=== PATIENT | male | born 1950 | race Caucasian/White ===

== ENCOUNTER 2017-01-03 14:20 | Emergency (ER) | payer OTHER, MEDICARE ==
[~2017-01-03] VITALS: Ht 177.8 cm; Wt 96.2 kg
[~2017-01-03 14:20] MED LIST: ATIVAN1 MG PO; BENTYL20 M1 PO; CLONAZEPAM0.5 M2 PO; DIVALPROEX SOD250 M3 PO; DIVALPROEX SOD500 M3 PO; ESCITALOPRAM20 MG PO; GLUCOPHAGE500 MG PO; GOOD SENSE IBU200 MG PO; HYDROXYZINE HCL25 MG PO; IBUPROFEN400 M1 PO; METFORMIN HCL500 M3 PO; MOTRIN 400MG (400 MG PO; OXYCODONE-ACET1 EACH PO; PERCOCET 325 MG1 TA2 PO; PERCOCET 5-3251 EACH PO; PROMETHAZINE HC25 M3 PO; RISPERIDONE1 M1 PO; SERTRALINE HCL25 MG PO; TAMSULOSIN HCL0.4 M1 PO; TRADJENTA5 M1 PO; VOLTAREN100 GM TP; ZOFRAN4 M1 SL; ZOFRAN4 M2 SL; ZOLOFT 100 MG100 MG PO; ZOLOFT100 M1 PO; ZOLOFT25 MG PO
[2017-01-03] MEDS ORDERED: DICYCLOMINE HCL20 M1 PO (14:38)
--- NOTE | 2017-01-03 14:44 | ED UPPER/LOWER EXTREMITY COMPL ---
History of Present Illness General Chief Complaint: Hand or Wrist Injury Stated Complaint: SENT BY URGENT CARE, [facility] RT WRIST Source: patient Exam Limitations: no limitations Vital Signs & Intake/Output Vital Signs & Intake/Output Vital Signs Date Time Temp Pulse Resp B/P B/P Pulse O2 O2 Flow FiO2 Mean Ox Delivery Rate 01/03 1740 96.8 74 20 142/88 95 Room Air 01/03 1424 97.0 70 20 129/88 96 Room Air Allergies Coded Allergies: aspirin (Intermediate, ANAPHYLAXIS 01/17/16) codeine (Intermediate, UPSET GI 01/17/16) paroxetine (From Paxil) (Intermediate, UPSET GI 01/17/16) morphine (PASSES OUT 01/17/16) shellfish derived (N/V, DIARRHEA, ABD PAIN 01/17/16) Reconcile Medications Clonazepam 0.5 MG TABLET 1 TAB PO TID ANXIETY (Reported) Dicyclomine HCl 20 MG TABLET 1 TAB PO TID PRN ABDOMINAL PAIN (Reported) Divalproex Sodium (Divalproex Sodium ER) 250 MG TAB.ER.24H 1 TAB PO BID MOOD STABILITY (Reported) Divalproex Sodium (Divalproex Sodium ER) 500 MG TAB.ER.24H 1 TAB PO BID MOOD STABILITY (Reported) Linagliptin (Tradjenta) 5 MG TABLET 1 TAB PO DAILY DIABETES (Reported) Metformin HCl 500 MG TABLET 1 TAB PO 0800,1700 DIABETES (Reported) Oxycodone HCl/Acetaminophen (Percocet 5-325 MG Tablet) 5 MG-325 MG TABLET 1 TAB PO Q4-6 PRN PAIN Risperidone 1 MG TABLET 1 TAB PO QPM MENTAL HEALTH (Reported) Sertraline HCl 25 MG TABLET 1 TAB PO DAILY MENTAL HEALTH (Reported) Tamsulosin HCl 0.4 MG CAP.ER.24H 1 CAP PO DAILY PROSTATE (Reported) Triage Note: PT TO ED FOR RIGHT WRIST PAIN. STATES HE WENT TO THE WALK-IN FOR RIGHT WRIST PAIN S/P FALLING IN HIS GARDEN TODAY. WALK-IN DID AN X-RAY WHICH SHOWED A FRACTURE. PT SENT TO ED FOR SPLINTING. DECLINING MEDS IN TRIAGE. Triage Nurses Notes Reviewed? yes Onset: Abrupt Duration: constant Timing: single episode today Severity: severe Severity Numbers: 10 Method of Injury: fall HPI: Patient is a 66-year-old male who presents emergency and that today while gardening he tripped on a sidewalk where he fell forward bracing his fall with his right outstretched hand resulting in acute onset of right shoulder pain and right wrist pain. Patient denies any preceding episode of lightheaded sensation or dizziness and had mechanical fall. Patient denies any head strike neck pain or back pain. Patient did present to local urgent care and had x-ray findings concerning of fracture. No shoulder x-ray was performed. No medications administered prior to arrival. Skin is intact no bleeding has occurred. Patient is right arm dominant (JADON DUMONT) Past History Travel History Traveled to [place] past 21 day No Medical History Any Pertinent Medical History? 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 No (JADON DUMONT) Review of Systems Review of Systems Constitutional: Reports: no symptoms. EENTM: Reports: no symptoms. Respiratory: Reports: no symptoms. Cardiovascular: Reports: no symptoms. Gastrointestinal/Abdominal: Reports: no symptoms. Genitourinary: Reports: no symptoms. Musculoskeletal: Reports: see HPI, joint pain. Skin: Reports: no symptoms. Neurological/Psychological: Reports: no symptoms. Hematologic/Endocrine: Reports: no symptoms. Immunological: Reports: no symptoms. All Other Systems: Reviewed and Negative (JADON DUMONT) Physical Exam Physical Exam General Appearance: mild distress Peripheral Pulses: 2+ radial (R), 2+ radial (L) Neurologic/Tendon: normal sensation, normal motor functions, normal tendon functions, responds to pain, no evidence tendon injury, no pulse deficit Skin: intact, normal color, warm/dry Comments: HEENT: Normal EENT exam Neck: Supple, no lymphadenopathy, normal range of motion without pain or tenderness No central spinous tenderness Back: Nontender, no CVA tenderness. No central spinous tenderness Cardiovascular: Regular rate and rhythms no murmurs rubs or gallops, normal JVP Respiratory: Chest nontender. No respiratory distress.breath sounds clear to auscultation bilaterally Abdomen: Soft, nontender nondistended, no appreciable organomegaly. Normal bowel sounds. No ascites Extremity: No edema, no calf tenderness to palpation, normal and equal pulses. Right shoulder normal inspection clavicular point tenderness noted generalized glenohumeral point tenderness noted, decreased active range of motion noted Right elbow nontender full active range of motion Right wrist noted gross deformity and severe point tenderness and swelling. Radial pulse +2 Right hand nontender normal inspection Right upper extremity dermatomes intact Neuro: Alert oriented x3, motor sensory normal, Skin: No appreciable rash on exposed skin, skin is warm and dry. Psych: Mood and affect is normal, memory and judgment is normal. (JADON DUMONT) Progress Differential Diagnosis: arterial insufficiency, compartment syndrome, contusion, dislocation, DVT, fracture, gout, septic arthritis, sprain, tendon injury Plan of Care: Orders Procedure Date/time Status Heart Healthy Diet 01/04 B Active Patient does have concerns of right distal comminuted displaced radial fracture and ulnar fracture and which I discussed x-ray findings with DR. MYERS is who advised patient to receive hematoma block and RIGHT WRIST reduction and place patient in sugar tong splint AND shoulder immobilizer and follow up in office this week. Using sterile technique of Betadine I sterilized the right dorsal wrist region Using his 30-gauge needle 5 mL of 1% lidocaine was used for local interdermal anesthesia Then using a 22-gauge needle 1% lidocaine the hematoma site was ascertained with that aspiration then I inserted 10 mL of lidocaine to the hematoma site successfully making a hematoma block of the right wrist. Using traction I reduced the wrist patient tolerated well I then placed a sugar tong splint using orthopedic glass to the right forearm with web roll and Jordy wrap Pre-and post-neurovascular was intact shoulder immobilizer was placed. Post neurovascular was intact. Patient was strongly advised to follow up with orthopedic doctor reduction films were ordered Upon discharge patient looks well no apparent distress and will comply with discharge instructions and had no questions (JADON DUMONT) Diagnostic Imaging: Viewed by Me: Radiology Read. Radiology Impression: acute abnormality Comments: PATIENT: STEPHIE HOYOS PRESENT AGE: 66 PATIENT ACCOUNT NO: [id number] : 52 LOCATION: [facility] ORDERING PHYSICIAN: JADON ESPITIA SERVICE DATE: 01/03/17 EXAM TYPE: RAD - XRY-SHOULDER COMPLETE-RIGHT; XRY-WRIST COMPLETE-RIGHT EXAMINATION: XR SHOULDER, RIGHT XR WRIST, RIGHT CLINICAL INFORMATION: Right wrist and shoulder pain following a fall. COMPARISON: Right shoulder radiographs dated 05/04/2012. TECHNIQUE: 3 views of the right shoulder as well as 4 views of the right wrist were obtained. FINDINGS: RIGHT SHOULDER: No acute fracture or dislocation. Deformity of the distal clavicle, consistent with the history of a prior comminuted distal clavicular fracture. No significant glenohumeral joint space narrowing or marginal osteophytes. No osseous erosion. No abnormal soft tissue calcification. RIGHT WRIST: There is a comminuted and displaced fracture of the distal radial diametaphysis with multiple extensions to the radiocarpal joint. There is overall mild apex dorsal angulation of the dominant fracture line. A displaced fracture of the ulnar styloid is also noted. There is mild surrounding soft tissue swelling. IMPRESSION: Right shoulder: No acute fracture or dislocation. Deformity related to remote clavicular fracture. Right wrist: Comminuted and displaced fracture of the distal radius with multiple extensions to the radiocarpal articular surface. Displaced ulnar styloid fracture. PATIENT: STEPHIE HOYOS PRESENT AGE: 66 PATIENT ACCOUNT NO: [id number] : 52 LOCATION: [facility] ORDERING PHYSICIAN: JADON ESPITIA SERVICE DATE: 01/03/17160 EXAM TYPE: RAD - XRY-WRIST COMPLETE-RIGHT EXAMINATION: XR WRIST, RIGHT CLINICAL INFORMATION: Evaluate fracture status post reduction splint placement. COMPARISON: Right wrist radiographs done earlier the same day. TECHNIQUE: AP and lateral views of the right wrist through an overlying cast. FINDINGS: A comminuted distal radial fracture is redemonstrated with mild decrease angulation and improvement of anatomic alignment. A displaced ulnar styloid fracture is redemonstrated. IMPRESSION: Comminuted distal right radius fracture with mild improved anatomic alignment. Unchanged ulnar styloid fracture. Interval placement of an overlying cast. DICTATED BY: EDMAR JERRY MD DATE/TIME DICTATED:01/03/171635 MEDICAL LAB ASSISTANT:JASS (JADON DUMONT) Departure Departure Disposition: HOME OR SELF CARE Condition: Stable Clinical Impression Primary Impression: Displaced comminuted fracture of shaft of radius Secondary Impressions: Fracture of right ulnar styloid Referrals: LOUIS QIU,JUNIOR BULLARD MD,JOYCE Cabezas (PCP/Family) Additional Instructions: As discussed begin the prescription of Percocet for pain. On Wednesday please follow up with orthopedic DR. MYERS for further evaluation treatment. Per prescription is waiting at [facility] pharmacy. Continue to leave the splint and Jordy wrap and shoulder immobilizer on at all times and to you follow up with the orthopedic doctor. If symptoms worsen return to emergency room Departure Forms: Customer Survey General Discharge Information Prescriptions: Current Visit Scripts Oxycodone HCl/Acetaminophen (Percocet 5-325 MG Tablet) 1 TAB PO Q4-6 PRN PAIN #20 TAB (JADON DUMONT) PA/BRUSH TRIMMING MACHINE SETTER Co-Sign Statement Statement: ED Attending supervision documentation- [X] I saw and evaluated the patient. I have also reviewed all the pertinent lab results and diagnostic results. I agree with the findings and the plan of care as documented in the PA's/BRUSH TRIMMING MACHINE SETTER's documentation. [X] I have reviewed the ED Record and agree with the PA's/BRUSH TRIMMING MACHINE SETTER's documentation. [] Additions or exceptions (if any) to the PAs/BRUSH TRIMMING MACHINE SETTER's note and plan are summarized below: [] (CHELITA QIU,YOVANNY Burns)
--- NOTE | 2017-01-03 15:17 | RADIOLOGY REPORT ---
EXAMINATION: XR SHOULDER, RIGHT XR WRIST, RIGHT CLINICAL INFORMATION: Right wrist and shoulder pain following a fall. COMPARISON: Right shoulder radiographs dated 05/04/2012. TECHNIQUE: 3 views of the right shoulder as well as 4 views of the right wrist were obtained. FINDINGS: RIGHT SHOULDER: No acute fracture or dislocation. Deformity of the distal clavicle, consistent with the history of a prior comminuted distal clavicular fracture. No significant glenohumeral joint space narrowing or marginal osteophytes. No osseous erosion. No abnormal soft tissue calcification. RIGHT WRIST: There is a comminuted and displaced fracture of the distal radial diametaphysis with multiple extensions to the radiocarpal joint. There is overall mild apex dorsal angulation of the dominant fracture line. A displaced fracture of the ulnar styloid is also noted. There is mild surrounding soft tissue swelling. IMPRESSION: Right shoulder: No acute fracture or dislocation. Deformity related to remote clavicular fracture. Right wrist: Comminuted and displaced fracture of the distal radius with multiple extensions to the radiocarpal articular surface. Displaced ulnar styloid fracture.
[2017-01-03] MEDS ORDERED: PERCOCET 5-3251 EACH PO (16:05)
--- NOTE | 2017-01-03 16:43 | RADIOLOGY REPORT ---
EXAMINATION: XR WRIST, RIGHT CLINICAL INFORMATION: Evaluate fracture status post reduction splint placement. COMPARISON: Right wrist radiographs done earlier the same day. TECHNIQUE: AP and lateral views of the right wrist through an overlying cast. FINDINGS: A comminuted distal radial fracture is redemonstrated with mild decrease angulation and improvement of anatomic alignment. A displaced ulnar styloid fracture is redemonstrated. IMPRESSION: Comminuted distal right radius fracture with mild improved anatomic alignment. Unchanged ulnar styloid fracture. Interval placement of an overlying cast.
[2017-01-03 17:40] VITALS: BP 142/88
[2017-01-07] MEDS ORDERED: IMITREX50 M1 (09:09)
== END 2017-01-03 17:43 ==
LOC: ERH 14:20
DX: S52.351A Displaced comminuted fracture of shaft of radius, right arm, initial encounter for closed fracture (principal); S52.611A Displaced fracture of right ulna styloid process, initial encounter for closed fracture; W18.09XA Striking against other object with subsequent fall, initial encounter; Y93.H2 Activity, gardening and landscaping; Y92.9 Unspecified place or not applicable
CPT/HCPCS: 73030-RT; 73110-RT

== ENCOUNTER → 2017-01-08 | Day surgery (SDC) | payer OTHER, MEDICARE ==
[~2017-01-08] VITALS: Ht 177.8 cm; Wt 50.8 kg
[~2017-01-08] MED LIST changes: +DICYCLOMINE HCL20 M1 PO; +IMITREX50 M1
--- NOTE | 2017-01-08 17:43 | Operative Report ---
Operative/Inv Procedure Report Surgery Date: 01/08/17 Name of Procedure: Open reduction internal fixation of right distal radius fracture which was intra -articular and severely comminuted Pre-Operative Diagnosis: Severely comminuted and displaced distal radius fracture Post-Operative Diagnosis: Same Estimated Blood Loss: less than 50ml Surgeon/Senior Engineering Specialist: LOUIS QIU,Emeterio PACHECO Anesthesia: laryngeal mask airway Implants: 7-hole hand innovation right DVR plate Drains: None Specimens: None Tourniquet: 70 minutes Complications: None Condition: Stable Operative Indication: Patient is a 66-year-old man who injured his right dominant wrist after a fall. He was found to have severely displaced and comminuted intra-articular distal radius fracture. Due to these findings it was recommended that he consider surgical fixation. Risks, benefits and expectations of surgical and further nonsurgical options were discussed including but not limited to persistent pain, nonunion, malunion, injury to blood vessel or nerve, infection and anesthesia risks and need for subsequent surgery. He wished to proceed with surgical management Operative/Procedure Note Note: Patient was brought to the operating room and transferred to the operating table. Once under appropriate anesthesia the right upper extremity was prepped and draped in standard fashion. Preoperative IV antibiotic's were given prophylactically. There was a need for expert assistant professor of religion surgeon during this case due to the severity the comminution and the instability of the fracture. The expert assistant professor of religion surgeon supplied positioning, retraction of soft tissues to protect vital structures including radial artery and median nerve during this procedure. A standard volar incision was made over the distal radius after the right upper extremity was elevated exsanguinated and tourniquet was inflated to 250 mm of pressure. Incision was taken down sharply to the flexor carpi radialis sheath. I then went radial to this and retracted the tendon ulnarly to protect the median nerve. There was significant amount of stripping from the actual injury itself A quadratus was reflected ulnarly as well exposing the fracture. There was multiple large fragments constituting the displaced fracture. There was also a intra-articular split that was visible after using the periosteal elevator to expose the distal portion of the fracture site. Copious irrigation followed. I placed retractors including blunt retractors to protect any injury to vessel or nerve. I then chose a 7-hole plate. A longer plate was needed to be applied due to the severe comminution of the distal shaft of the radius. I used a right DVR hand innovation plate. The 7-hole plate was applied to the volar aspect of the distal radius after reducing the multiple fragments. A large portion of this fracture was and using the plate and therefore proximal fixation included 3 bicortical screws with good fixation and distally including the 2 rows. The proximal row with the partially threaded screws were applied to the plate and the pegs were applied distal and the distal row. This was done in standard fashion with drilling measuring and applying the appropriate length screws. This was done after applying the plate and reducing the fracture placing the 3 guidewires to maintain position of the plate followed by fluoroscopic image control I was satisfied with position of the plate and reduction of the fracture and the position of the hardware. Copious irrigation followed. Then closed the subcutaneous case tissue with 3-0 Vicryl suture followed by skin closure with a running Prolene suture.
== END ==
LOC: STS 01:45
DX: S52.571A Other intraarticular fracture of lower end of right radius, initial encounter for closed fracture (principal); W19.XXXA Unspecified fall, initial encounter
CPT/HCPCS: 93005; 93010; C1713; J0131; J0690; J2250

== ENCOUNTER 2018-02-10 16:36 | Observation (INO) | payer OTHER, MEDICARE ==
[~2018-02-10] VITALS: Ht 175.3 cm; Wt 92.1 kg
[~2018-02-10 16:36] MED LIST changes: +ADVIL200 M1 PO; +ADVIL200 M2 PO; +CARBAMAZEPINE100 M2 PO; -IMITREX50 M1; +IMITREX50 M1 PO; +LAMICTAL25 M1 PO; +VENLAFAXINE HCL75 M1 PO; +VOLTAREN100 GM TOP
[2018-02-10] MEDS ORDERED: VIBERZI75 MG PO (17:00)
[2018-02-10] MEDS ORDERED: BUSPIRONE HCL5 M1 PO (17:00)
--- NOTE | 2018-02-10 17:02 | ED CARDIAC/CP/PALPITATIONS ---
History of Present Illness General Chief Complaint: Chest Pain Stated Complaint: SIB WALK IN FOR CHEST PAIN Source: patient Exam Limitations: no limitations Vital Signs & Intake/Output Vital Signs & Intake/Output Vital Signs Date Time Temp Pulse Resp B/P B/P Pulse O2 O2 Flow FiO2 Mean Ox Delivery Rate 02/10 2305 96.1 68 18 112/64 98 Room Air 02/10 1954 98.0 63 18 158/89 95 06/07 1726 Room Air 02/10 1721 96.5 76 18 134/79 98 Room Air Allergies Coded Allergies: aspirin (Intermediate, ANAPHYLAXIS 01/17/16) hydroxyzine (DIZZINESS 04/19/17) metformin (DIARRHEA 04/19/17) sertraline (From ZOLOFT) (N/V/D; possible precipitation of hypomania 04/24/17) venlafaxine (From EFFEXOR) (Severe, tongue swelling 04/24/17) codeine (Intermediate, UPSET GI 01/17/16) paroxetine (From Paxil) (Intermediate, UPSET GI 01/17/16) duloxetine (From CYMBALTA) (GI UPSET 01/07/17) morphine (PASSES OUT 01/17/16) shellfish derived (N/V, DIARRHEA, ABD PAIN 01/17/16) Reconcile Medications Buspirone HCl 5 MG TABLET 1 TAB PO DAILY MENTAL HEALTH (Reported) Clonazepam 0.5 MG TABLET 1 TAB PO TID ANXIETY (Reported) Diclofenac Sodium (Voltaren) 1 % GEL..GRAM. 1 GM TOP 4 TIMES/DAY PAIN/ INFLAMMATION - KNEES (Reported) apply to affected area(s) Dicyclomine HCl 20 MG TABLET 1 TAB PO Q6H PRN ABDOMINAL PAIN (Reported) Eluxadoline (Viberzi) 75 MG TABLET 1 TAB PO BID IBS (Reported) Ibuprofen (Advil) 200 MG TABLET 1 TAB PO DAILY NEEDED PRN PAIN (Reported) Triage Nurses Notes Reviewed? yes Onset: Abrupt Duration: better Timing: single episode today Quality/Severity: severe Radiation: no radiation HPI: Patient is a 67-year-old male with a past medical history of diet controlled diabetes, hepatitis C, osteoarthritis, PTSD anxiety depression panic attacks who presents to the emergency room with concerns of chest pain That began today at 1530 while at rest sleeping describes pressure-like 8 of 10 localized left chest wall pain with associated symptoms of dizziness flushing sensation and palpitations. Patient did not take any medications for symptoms has improvement of his pain considered a 5 out of 10 currently. Patient does state that he had a Holter monitor placed by his primary care doctor in which he has a establishment with Dr. AMBROCIO Denies any illicit drug use smoking tobacco or alcohol. Denies any history of DVT PE hemoptysis leg swelling fever chills nausea vomiting arm pain jaw pain Patient states after symptoms began he presented to urgent care facility had a presyncopal episode where he felt the ground complaining of mild left knee pain no syncopal episode had occurred patient does recall the entire event No OTHER injury occurred Patient also complains of a recent history of noted unknown rash and insect bite to the left torso region with mild erythema (Vance Batista) Past History Travel History Traveled to [place] past 21 day No Medical History Any Pertinent Medical History? see below for history Neurological: migraine EENT: NONE Cardiovascular: NONE, CARDAIC CATH 11/2015 NO BLOCKAGES Respiratory: NONE Gastrointestinal: Ventral hernia Chronic abdominal pain Hepatic: HEPATITIS C-1987 - was treated. 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 MOTHER (Alzheimer's). BROTHER (HI at age 60). Hx Contributory? No (Vance Batista) Review of Systems Review of Systems Constitutional: Reports: no symptoms. EENTM: Reports: no symptoms. Respiratory: Reports: see HPI. Cardiovascular: Reports: see HPI. GI: Reports: no symptoms. Genitourinary: Reports: no symptoms. Musculoskeletal: Reports: no symptoms. Skin: Reports: no symptoms. Neurological/Psychological: Reports: no symptoms. Hematologic/Endocrine: Reports: no symptoms. Immunologic/Allergic: Reports: no symptoms. All Other Systems: Reviewed and Negative (Vance Batista) Physical Exam Physical Exam General Appearance: no apparent distress, alert, comfortable Head: atraumatic Eyes: Bilateral: normal appearance, PERRL. Ears, Nose, Throat: normal pharynx, normal ENT inspection Neck: normal inspection, supple Respiratory: normal breath sounds, no respiratory distress, LEFT ANTERIOR CHEST WALL PAIN UPON PALPATION Cardiovascular: regular rate/rhythm Gastrointestinal: normal bowel sounds, soft, non-tender Extremities: no edema, LEFT KNEE GENERALIZED POINT TENDERNESS NOTED Neurologic/Psych: no motor/sensory deficits, awake Skin: intact, normal color, warm/dry Core Measures ACS in differential dx? No CVA/TIA Diagnosis No Sepsis Present: No Sepsis Focused Exam Completed? No (Eliecer ESPITIA,Vance) Progress Differential Diagnosis: AMI, aortic dissection, atrial fibrillation, cholecystitis, CHF/pulm edema, costochondritis, hyperkalemia, hypovolemia, hyperthyroid, hyperventilation, intracranial hemorrhage, musculoskeletal pain, myocarditis, pancreatitis, pericarditis, pneumonia, pneumothorax, PSVT, pulmonary embolism, PUD/GERD, PVCs/PACs, respiratory failure, sepsis, unstable angina, V-fib/V-Tach, WPW syndrome Plan of Care: Orders Procedure Date/time Status Nothing by Mouth 02/11 B Active TROPONIN LEVEL 02/11 0320 Active EKG 02/11 0320 Active Pathway - chart 02/10 2235 Active Patient Data 02/[address] in observation 02/10 2221 Active OXYGEN SETUP (GEN) 02/10 221 Active Saline Lock 02/10 221 Active Vital Signs 02/10 221 Active Activity/Ambulation 02/10 221 Active Code Status 02/10 221 Active Add-on Test (ER Only) 02/10 220 Active Telemetry/Wood Stainer 02/10 2204 Active TROPONIN LEVEL 02/10 2100 Complete EKG 02/10 2100 Active Add-on Test (ER Only) 02/10 1729 Active THYROID STIMULATING HORMONE 02/10 1652 Complete THYROXINE 02/10 1652 Complete D-DIMER 02/10 1652 Complete TROPONIN LEVEL 02/10 1646 Complete LYME TITRE 02/10 1646 Active COMPREHENSIVE METABOLIC PANEL 02/10 1646 Complete CBC WITHOUT DIFFERENTIAL 02/10 1646 Complete EKG 02/10 1637 Active Saline Lock 02/10 UNK Active Pathway - chart 02/10 UNK Active House Staff 02/10 UNK Active ACS Core Measures 02/10 UNK Active VTE Mechanical Prophylaxis 02/10 UNK Active Vital Signs 02/10 UNK Active Intake & Output 02/10 UNK Active FingerStick- Glucose 02/10 UNK Active Activity/Ambulation 02/10 UNK Active CASE MANAGEMENT CONSULT 02/10 UNK Active Current Medications Sig/Zoe Start time Last Medication Dose Stop Time Status Admin Enoxaparin Sodium 40 MG DAILY 02/11 900 UNVr (Lovenox) Multivitamins 1 TAB DAILY 02/11 900 AC (Theragran Vitamins) Laboratory Tests 02/10/18 2119: Troponin I 0.30 *H 02/10/18 1652: Anion Gap 12, Estimated GFR > 60, BUN/Creatinine Ratio 22.0, Glucose 96, Calcium 9.4, Total Bilirubin 0.5, AST 33, ALT 31, Alkaline Phosphatase 81, Troponin I < 0.01, Total Protein 7.5, Albumin 4.3, Globulin 3.2, Albumin/Globulin Ratio 1.3, TSH 0.861, Thyroxine (T4) 5.7, D-Dimer High Sensitivty < 200, CBC w Diff NO MAN DIFF REQ, RBC 5.19, MCV 89.0, MCH 29.6, MCHC 33.3, RDW 14.4, MPV 7.1 L, Gran % 67.5, Lymphocytes % 18.3 L, Monocytes % 10.7 H, Eosinophils % 3.0, Basophils % 0.5, Absolute Granulocytes 4.9, Absolute Lymphocytes 1.3, Absolute Monocytes 0.8 H, Absolute Eosinophils 0.2, Absolute Basophils 0 02/10/18 1646: Lyme Disease Antibody Pending Patient upon initial presentation is resting comfortably bedside has reproducible chest wall pain upon palpation of the left anterior chest region. EKG was unremarkable 1900= patient was reevaluated at this time currently states his chest pain has resolved initial troponin negative patient will receive second set troponin at 2100 HEART SCORE 1 patient has been asymptomatic for pain in the emergency room, second EKG was unremarkable no ischemic changes However second troponin was elevated at 0.3. Discussed patient with manager school Dr. Alexandre who advised not to administered heparin at this time he is aware of patient's presentation He advised observation Discussed observation with patient Patient has left unknown insect bite and irritation of the torso he was given doxycycline for prophylactic tick bite Patient will receive x-ray to left knee for mild generalized tenderness on exam Diagnostic Imaging: Viewed by Me: Radiology Read. Radiology Impression: no acute abnormality, no fracture Initial ED EKG: normal p-waves, normal QRS complex, normal sinus rhythm, 72 BPM, NSR Prior EKG: unchanged Comments: PATIENT: STEPHIE HOYOS PRESENT AGE: 67 PATIENT ACCOUNT NO: [id number] : 52 LOCATION: [facility] ORDERING PHYSICIAN: Vance ESPITIA SERVICE DATE: 02/10/18 EXAM TYPE: RAD - XRY-KNEE COMPLETE LEFT EXAMINATION: XR KNEE, LEFT CLINICAL INFORMATION: Syncope. Left knee pain. COMPARISON: None TECHNIQUE: Four views of the left knee. FINDINGS: There is no fracture. No dislocation. No joint effusion. There is degenerative joint disease. There is near [id number] contact between femur and tibia at the medial femoral tibial joint. There are small spurs of the patella the patellofemoral joint superiorly and inferiorly. No soft tissue calcification. No bone erosions. IMPRESSION: 1. No acute acute abnormality. 2. Degenerative joint disease. DICTATED BY: Vincent Lomas MD DATE/TIME DICTATED:02/10/182238 SHUTTLE HAND:JASS DATE/TIME TRANSCRIBED:02/10/18 PATIENT: STEPHIE HOYOS PRESENT AGE: 67 PATIENT ACCOUNT NO: [id number] : 52 LOCATION: [facility] ORDERING PHYSICIAN: Geovanna ESPITIA SERVICE DATE: 02/10/18 EXAM TYPE: RAD - XRY-CHEST XRAY, TWO VIEWS EXAMINATION: XR CHEST CLINICAL INFORMATION: Chest pain. COMPARISON: Chest x-ray 01/24/2016 TECHNIQUE: 2 views of the chest were obtained. FINDINGS: No acute abnormality. The lungs are clear. No pulmonary vascular congestion. There is no pleural effusion and no pneumothorax. The heart size is normal. The cardiac and mediastinal contours are normal. Stable chronic deformity of the distal right clavicle. No acute osseous abnormality. IMPRESSION: No acute abnormality of the chest. DICTATED BY: Vincent Lomas MD DATE/TIME DICTATED:02/10/181745 SHUTTLE HAND:JASS (Vance Batista) Departure Departure Disposition: STILL A PATIENT Condition: Stable Clinical Impression Primary Impression: Elevated troponin Secondary Impressions: Chest pain, Insect bite, Pre-syncope Referrals: Unknown (PCP/Family) Departure Forms: Customer Survey General Discharge Information Observation Note Spoke With: Irvin QIU,Wing Physician Advisor Notified: CHELITA QIU,YOVANNY [address] Patient In: Non-ED OBS Care Area Rationale for Observation: My rational for observation is as follows [patient requires repeat EKG repeat troponins cardiology consultation and possible anticoagulation if troponin elevates, requires telemetry monitoring]. (Vance Batista) PA/CHEF DE PARTIE Co-Sign Statement Statement: ED Attending supervision documentation- x I saw and evaluated the patient. I have also reviewed all the pertinent lab results and diagnostic results. I agree with the findings and the plan of care as documented in the PA's/CHEF DE PARTIE's documentation. CP, syncope, + 2nd trop without ischemia on EKG [] I have reviewed the ED Record and agree with the PA's/CHEF DE PARTIE's documentation. [] Additions or exceptions (if any) to the PAs/CHEF DE PARTIE's note and plan are summarized below: [] ([place] QIU,Geoff) Critical Care Note Critical Care Note Critical Care Time: 30-74 min (Vance Batista)
[2018-02-10 17:04] LABS: ABSOLUTE BASOPHIL COUNT 0 /CUMM (0.0-0.2); ABSOLUTE EOSINOPHIL COUNT 0.2 /CUMM (0.0-0.7); ABSOLUTE GRANULOCYTE CT 4.9 /CUMM (1.4-6.5); ABSOLUTE LYMPH COUNT 1.3 /CUMM (1.2-3.4); ABSOLUTE MONOCYTE COUNT 0.8 /CUMM (0.10-0.60); BASOPHIL % 0.5 % (0.0-2.0); GRANULOCYTE % 67.5 % (42.2-75.2); HEMATOCRIT 46.2 % (42-52); MEAN CORPUSCULAR HGB 29.6 PG (27.0-31.0); MEAN CORPUSCULAR HGB CONC 33.3 G/DL (33.0-37.0); MEAN PLATELET VOLUME 7.1 FL (7.4-10.4); PLATELET COUNT 258 /CUMM (130-400); RBC DISTRIBUTION WIDTH 14.4 % (11.5-14.5); RED BLOOD CELL CT 5.19 /CUMM (4.70-6.10); WHITE BLOOD CELL COUNT 7.2 /CUMM (4.8-10.8)
--- NOTE | 2018-02-10 17:51 | RADIOLOGY REPORT ---
EXAMINATION: XR CHEST CLINICAL INFORMATION: Chest pain. COMPARISON: Chest x-ray 01/24/2016 TECHNIQUE: 2 views of the chest were obtained. FINDINGS: No acute abnormality. The lungs are clear. No pulmonary vascular congestion. There is no pleural effusion and no pneumothorax. The heart size is normal. The cardiac and mediastinal contours are normal. Stable chronic deformity of the distal right clavicle. No acute osseous abnormality. IMPRESSION: No acute abnormality of the chest.
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
--- NOTE | 2018-02-10 22:44 | RADIOLOGY REPORT ---
EXAMINATION: XR KNEE, LEFT CLINICAL INFORMATION: Syncope. Left knee pain. COMPARISON: None TECHNIQUE: Four views of the left knee. FINDINGS: There is no fracture. No dislocation. No joint effusion. There is degenerative joint disease. There is near chjc-ul-nobe contact between femur and tibia at the medial femoral tibial joint. There are small spurs of the patella the patellofemoral joint superiorly and inferiorly. No soft tissue calcification. No bone erosions. IMPRESSION: 1. No acute acute abnormality. 2. Degenerative joint disease.
[2018-02-11] MEDS ORDERED: TEGRETOL200 M1 PO (00:09)
[2018-02-11] MEDS ORDERED: VENLAFAXINE HCL75 M1 PO (00:10)
[2018-02-11] MEDS ORDERED: LAMOTRIGINE25 M3 PO (00:10)
[2018-02-11 01:45] VITALS: BP 102/64
[2018-02-11 03:55] LABS: ABSOLUTE BASOPHIL COUNT 0 /CUMM (0.0-0.2); ABSOLUTE EOSINOPHIL COUNT 0.3 /CUMM (0.0-0.7); ABSOLUTE GRANULOCYTE CT 2.7 /CUMM (1.4-6.5); ABSOLUTE LYMPH COUNT 1.3 /CUMM (1.2-3.4); ABSOLUTE MONOCYTE COUNT 0.5 /CUMM (0.10-0.60); BASOPHIL % 0.4 % (0.0-2.0); EOSINOPHIL % 6.5 % (0-5); GRANULOCYTE % 55.8 % (42.2-75.2); HEMATOCRIT 42.9 % (42-52); MEAN CORPUSCULAR HGB 29.7 PG (27.0-31.0); MEAN CORPUSCULAR HGB CONC 33.8 G/DL (33.0-37.0); MEAN CORPUSCULAR VOLUME 87.8 FL (80.0-94.0); MEAN PLATELET VOLUME 7.3 FL (7.4-10.4); PLATELET COUNT 242 /CUMM (130-400); RBC DISTRIBUTION WIDTH 14.1 % (11.5-14.5); RED BLOOD CELL CT 4.88 /CUMM (4.70-6.10); WHITE BLOOD CELL COUNT 4.9 /CUMM (4.8-10.8)
[2018-02-11 06:54] VITALS: BP 110/70
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
--- NOTE | 2018-02-11 11:15 | Cons- Cardiology ---
General Information and HPI Consulting Request Date of Consult: 02/11/18 Requested By: Irvin QIU,Wing Reason for Consult: Chest pain Source of Information: patient, old records History of Present Illness: This is a 67-year-old male with a history of diet-controlled diabetes, nephrolithiasis, anxiety, chronic migraine, and bipolar disorder who presents to [facility] with a chief complaint of left-sided chest discomfort; occurred at rest and was continuous without any obvious exacerbating or alleviating factors, denied associated shortness of breath or palpitations. Does report increased emotional stress recently. Prior to the episode he had normal exertional tolerance with no exertional symptoms. His symptoms have completely resolved. He did undergo a cardiac catheterization in the setting of chest pain in 2016 that showed normal coronary arteries. He denies any slurring of speech, focal weakness, subjective fever, or chills. Allergies/Medications Allergies: Coded Allergies: aspirin (Intermediate, ANAPHYLAXIS 01/17/16) hydroxyzine (DIZZINESS 04/19/17) metformin (DIARRHEA 04/19/17) sertraline (From ZOLOFT) (N/V/D; possible precipitation of hypomania 04/24/17) venlafaxine (From EFFEXOR) (Severe, tongue swelling 04/24/17) codeine (Intermediate, UPSET GI 01/17/16) paroxetine (From Paxil) (Intermediate, UPSET GI 01/17/16) duloxetine (From CYMBALTA) (GI UPSET 01/07/17) morphine (PASSES OUT 01/17/16) shellfish derived (N/V, DIARRHEA, ABD PAIN 01/17/16) Home Med List: Buspirone HCl 5 MG TABLET 1 TAB PO DAILY MENTAL HEALTH (Reported) Carbamazepine (Tegretol) 200 MG TABLET 1 TAB PO BID SEIZURE (Reported) Clonazepam 0.5 MG TABLET 1 TAB PO TID ANXIETY (Reported) Diclofenac Sodium (Voltaren) 1 % GEL..GRAM. 1 GM TOP 4 TIMES/DAY PAIN/ INFLAMMATION - KNEES (Reported) apply to affected area(s) Dicyclomine HCl 20 MG TABLET 1 TAB PO Q6H PRN ABDOMINAL PAIN (Reported) Eluxadoline (Viberzi) 75 MG TABLET 1 TAB PO BID IBS (Reported) Ibuprofen (Advil) 200 MG TABLET 1 TAB PO DAILY NEEDED PRN PAIN (Reported) Lamotrigine 25 MG TABLET 1 TAB PO DAILY SEIZURE (Reported) Venlafaxine HCl (Venlafaxine HCl ER) 75 MG CAP.ER.24H 1 CAP PO DAILY MENTAL HEALTH (Reported) Current Medications: Current Medications Sig/Zoe Start time Last Medication Dose Route Stop Time Status Admin Acetaminophen 0 .STK-MED ONE 02/10 1811 DC PO Acetaminophen 650 MG ONCE ONE 02/10 1800 DC 02/10 PO 02/10 1801 1805 Buspirone HCl 5 MG DAILY 02/11 900 AC 02/11 PO 0838 Carbamazepine 200 MG BID 02/11 900 CAN PO Clonazepam 0 .STK-MED ONE 02/11 0025 DC PO Clonazepam 0.5 MG TID 02/11 0008 AC 02/11 PO 02/18 0007 0838 Doxycycline Hyclate 0 .STK-MED ONE 02/10 2219 DC PO Doxycycline Hyclate 100 MG ONCE ONE 02/10 2215 DC 02/10 PO 02/10 221 221 Enoxaparin Sodium 40 MG DAILY 02/11 900 AC 02/11 SC 0838 Lamotrigine 25 MG DAILY 02/11 930 CAN PO Lamotrigine 25 MG DAILY 02/11 900 CAN PO Multivitamins 1 TAB DAILY 02/11 900 AC 02/11 PO 0838 Non-Formulary 0 SEE ADMIN CRITERIA 02/11 730 CAN Medication ANY Venlafaxine HCl 75 MG DAILY 02/11 930 CAN PO Venlafaxine HCl 75 MG DAILY 02/11 900 CAN PO Review of Systems Review of Systems: Review of systems as per HPI. The remainder of a 10 point review of systems was reviewed and was otherwise negative. Past History Travel History Traveled to [place] past 21 day No Medical History Blood Transfusion Hx: No Neurological: migraine EENT: NONE Cardiovascular: NONE, CARDAIC CATH 11/2015 NO BLOCKAGES Respiratory: NONE Gastrointestinal: Ventral hernia Chronic abdominal pain Hepatic: HEPATITIS C-1987 - was treated. 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 MOTHER (Alzheimer's). BROTHER (MO at age 60). Psychosocial History Who Do You Live With? Roommate Services at Home: None Primary Language: Belizean Smoking Status: Never Smoked ETOH Use: denies use Illicit Drug Use: denies illicit drug use Functional Ability ADLs Independent: dressing, eating, toileting, bathing. Ambulation: independent IADLs Independent: shopping, housework, finances, food prep, telephone, transportation , medication admin. Exam & Diagnostic Data Vital Signs and I&O Vital Signs Date Time Temp Pulse Resp B/P B/P Pulse O2 O2 Flow FiO2 Mean Ox Delivery Rate 02/11 08 Room Air 02/11 0654 97.8 68 18 110/70 95 Room Air 02/11 0145 98.9 61 20 102/64 95 Room Air / 2305 96.1 68 18 112/64 98 Room Air / 1954 98.0 63 18 158/89 95 06/07 1726 Room Air 02/10 1721 96.5 76 18 134/79 98 Room Air Intake & Output 02/11 1600 02/11 0800 02/11 0000 02/10 1600 02/10 0800 02/10 0000 Intake Total 120 0 Output Total 350 650 0 Balance -350 -530 0 Intake, Oral 120 0 Output, Urine 350 650 0 Patient 203 lb 197 lb Weight Weight Bed scale Measurement Method Physical Exam: General: no apparent distress. Alert. Eyes: No obvious scleral icterus. HEENT: No jugular venous distention or abnormal jugular venous pulsations. Cardiovascular: Normal intensity S1/S2. PMI not grossly displaced. Respiratory: Lungs clear to auscultation bilaterally. Abdomen: Soft, nontender with no guarding or rebound tenderness. Musculoskeletal: No clubbing or cyanosis noted Skin: warm Neurologic: No gross focal deficits noted. Lymph: No gross lymphadenopathy. Labs/Bimal Results: Laboratory Tests 02/11 02/11 02/10 0325 [id number] Chemistry Sodium (137 - 145 mmol/L) 143 Potassium (3.5 - 5.1 mmol/L) 4.1 Chloride (98 - 107 mmol/L) 104 Carbon Dioxide (22 - 30 mmol/L) 27 Anion Gap (5 - 16) 12 BUN (9 - 20 mg/dL) 18 Creatinine (0.7 - 1.2 mg/dL) 1.0 Estimated GFR (>60 ml/min) > 60 BUN/Creatinine Ratio (7 - 25 %) 18.0 Troponin I (<0.11 ng/ml) < 0.01 < 0.01 Triglycerides (<150 mg/dL) 70 Cholesterol (< 200 MG/DL) 163 LDL Cholesterol, Calc (65 - 129 mg/dL) 104 HDL Cholesterol (40 - 60 mg/dL) 45 Cholesterol/HDL Ratio (0.00 - 4.88 %) 4 Hematology CBC w Diff NO MAN DIFF REQ WBC (4.8 - 10.8 /CUMM) 4.9 RBC (4.70 - 6.10 /CUMM) 4.88 Hgb (14.0 - 18.0 G/DL) 14.5 Hct (42 - 52 %) 42.9 MCV (80.0 - 94.0 FL) 87.8 MCH (27.0 - 31.0 PG) 29.7 MCHC (33.0 - 37.0 G/DL) 33.8 RDW (11.5 - 14.5 %) 14.1 Plt Count (130 - 400 /CUMM) 242 MPV (7.4 - 10.4 FL) 7.3 L Gran % (42.2 - 75.2 %) 55.8 Lymphocytes % (20.5 - 51.1 %) 26.8 Monocytes % (1.7 - 9.3 %) 10.5 H Eosinophils % (0 - 5 %) 6.5 H Basophils % (0.0 - 2.0 %) 0.4 Absolute Granulocytes (1.4 - 6.5 /CUMM) 2.7 Absolute Lymphocytes (1.2 - 3.4 /CUMM) 1.3 Absolute Monocytes (0.10 - 0.60 /CUMM) 0.5 Absolute Eosinophils (0.0 - 0.7 /CUMM) 0.3 Absolute Basophils (0.0 - 0.2 /CUMM) 0 02/10 02/10 1652 1646 Chemistry Sodium (137 - 145 mmol/L) 142 Potassium (3.5 - 5.1 mmol/L) 4.1 Chloride (98 - 107 mmol/L) 101 Carbon Dioxide (22 - 30 mmol/L) 28 Anion Gap (5 - 16) 12 BUN (9 - 20 mg/dL) 22 H Creatinine (0.7 - 1.2 mg/dL) 1.0 Estimated GFR (>60 ml/min) > 60 BUN/Creatinine Ratio (7 - 25 %) 22.0 Glucose (65 - 99 mg/dL) 96 Calcium (8.4 - 10.2 mg/dL) 9.4 Total Bilirubin (0.2 - 1.3 mg/dL) 0.5 AST (17 - 59 U/L) 33 ALT (21 - 72 U/L) 31 Alkaline Phosphatase (< 127 U/L) 81 Troponin I (<0.11 ng/ml) < 0.01 Total Protein (6.3 - 8.2 g/dL) 7.5 Albumin (3.5 - 5.0 g/dL) 4.3 Globulin (1.9 - 4.2 gm/dL) 3.2 Albumin/Globulin Ratio (1.1 - 2.2 %) 1.3 TSH (0.270 - 4.200 uIU/mL) 0.861 Thyroxine (T4) (4.5 - 10.9 ug/dL) 5.7 Coagulation D-Dimer High Sensitivty (0 - 243 ng/ml) < 200 Hematology CBC w Diff NO MAN DIFF REQ WBC (4.8 - 10.8 /CUMM) 7.2 RBC (4.70 - 6.10 /CUMM) 5.19 Hgb (14.0 - 18.0 G/DL) 15.4 Hct (42 - 52 %) 46.2 MCV (80.0 - 94.0 FL) 89.0 MCH (27.0 - 31.0 PG) 29.6 MCHC (33.0 - 37.0 G/DL) 33.3 RDW (11.5 - 14.5 %) 14.4 Plt Count (130 - 400 /CUMM) 258 MPV (7.4 - 10.4 FL) 7.1 L Gran % (42.2 - 75.2 %) 67.5 Lymphocytes % (20.5 - 51.1 %) 18.3 L Monocytes % (1.7 - 9.3 %) 10.7 H Eosinophils % (0 - 5 %) 3.0 Basophils % (0.0 - 2.0 %) 0.5 Absolute Granulocytes (1.4 - 6.5 /CUMM) 4.9 Absolute Lymphocytes (1.2 - 3.4 /CUMM) 1.3 Absolute Monocytes (0.10 - 0.60 /CUMM) 0.8 H Absolute Eosinophils (0.0 - 0.7 /CUMM) 0.2 Absolute Basophils (0.0 - 0.2 /CUMM) 0 Serology Lyme Disease Antibody Pending Diagnostic Data EKG Results Tracing was personally reviewed and shows a sinus rhythm at 57 bpm with no obvious infarct pattern CXR Results No gross abnormality Other Results Telemetry tracings are personally reviewed and shows sinus rhythm Assessment/Plan Assessment/Plan 1. Left-sided chest pain now resolved 2. History of cardiac catheterization in 2016 that showed normal coronary arteries 3. Anxiety/bipolar disorder 4. History of aspirin allergy 5. Diet-controlled diabetes mellitus The patient's chest discomfort has resolved. [facility] are within normal limits. ECG showed no obvious infarct pattern or ischemic changes. No evidence of significant arrhythmia noted on telemetry. The patient did have a cardiac catheterization 2015 that showed normal coronary arteries. At this time no further inpatient cardiac testing is required and he can follow-up with his outpatient lead pastor to discuss possible outpatient echocardiogram and stress test. Dilan Vergara MD [facility] Consult Acknowledgment - Thank you for your consult request.
--- NOTE | 2018-02-11 11:33 | Patient Discharge Instructions ---
Discharge Instructions General Discharge Information You were seen/treated for: Presyncope Watch for these problems: Fever, chest pain, shortness of breath Special Instructions: Please take all medications as directed. Please follow-up with primary care and psychiatry. Diet Continue normal diet: Yes Activity Full Activity/No Limits: Yes Acute Coronary Syndrome Inclusion Criteria At DC or during hospital stay patient has or had the following: ACS DIAGNOSIS No Discharge Core Measures Meds if any: Prescribed or Continued at Discharge Meds if any: NOT Prescribed or Continued at Discharge Congestive Heart Failure Inclusion Criteria At DC or during hospital stay patient has or had the following: CHF DIAGNOSIS No Discharge Core Measures Meds if any: Prescribed or Continued at Discharge Meds if any: NOT Prescribed or Continued at Discharge Cerebrovascular accident Inclusion Criteria At DC or during hospital stay patient has or had the following: CVA/TIA Diagnosis No Discharge Core Measures Meds if any: Prescribed or Continued at Discharge Meds if any: NOT Prescribed or Continued at Discharge Venous thromboembolism Inclusion Criteria VTE Diagnosis No VTE Type NONE VTE Confirmed by (Test) NONE Discharge Core Measures - Per Current guidelines, there needs to be overlap - treatment for the first 5 days of Warfarin therapy. - If discharged on Warfarin prior to 5 days of - overlap therapy, the patient will need to be - assessed for post discharge needs including - *Post discharge parental anticoagulation - *Warfarin and/or parental anticoagulation education - *Follow up date to check INR post discharge At least 5 days overlap therapy as Inpatient No Meds if any: Prescribed or Continued at Discharge Note: Overlap Therapy is Warfarin and Anticoagulant Meds if any: NOT Prescribed or Continued at Discharge
[2018-02-11] MEDS ORDERED: ANTI ITCH TOP (13:34)
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
== END 2018-02-11 15:43 ==
LOC: ERH 16:36 → 1NO 22:21 → ERHI 22:21 → EDBEDREQDT 02-11 00:25 → EDBEDREQ 02-11 00:25 → EDBEDREQTM 02-11 00:25 → ENRESERV 02-11 00:53 → 1NO 02-11 01:26 → ENTRNSPT 02-11 15:33 → CMPTRNSPT 02-11 15:37 → 1NO 02-11 15:43
PROVIDERS: Internal Medicine; Physician Assistant
DX: R07.9 Chest pain, unspecified (principal); R55 Syncope and collapse; R77.8 Other specified abnormalities of plasma proteins; R00.2 Palpitations; F41.9 Anxiety disorder, unspecified; R53.83 Other fatigue; M19.90 Unspecified osteoarthritis, unspecified site
CPT/HCPCS: 6020; 86618; 36592; 71046; 73562-LT; 82436; 93005; 93010; 96372; 99291; G0378; J1650